=== PATIENT | female | born 1990 | race Caucasian/White ===

== ENCOUNTER 2019-06-05 04:55 | Inpatient (IN) | payer MEDICAID ==
[~2019-06-05] VITALS: Ht 170 cm; Wt 103.4 kg
[2019-06-05] MEDS ORDERED: DIPHENHYDRAMINE 25MG CAPSULE PO PRN (05:45)
[2019-06-05] MEDS ORDERED: IBUPROFEN 400MG TABLET PO PRN (05:45)
[2019-06-05] MEDS ORDERED: ACETAMINOPHEN WITH CODEINE 300/30MG TABLET PO PRN (05:45)
[2019-06-05] MEDS ORDERED: HEMORRHOIDAL SUPP PR PRN (05:45)
[2019-06-05] MEDS ORDERED: RHO(D) IMMUNE GLOBULIN 300 MCG/SYR IM PRN (05:45)
[2019-06-05] MEDS ORDERED: GLYCERIN/WITCH HAZEL LEAF MEDICATED PAD TOP PRN (05:45)
[2019-06-05] MEDS ORDERED: BENZOCAINE/LANOLIN/ALOE VERA SPRAY TOP PRN (05:45)
[2019-06-05] MEDS ORDERED: LANOLIN OINT 7GM TUBE TOP PRN (05:45)
[2019-06-05] MEDS: DEXT 5%/LR + PITOCIN 20UNITS/L 1,000 ML IV SCH ×2 (05:50→07:56)
[2019-06-05 05:51] LABS: BASOPHILS % 0.4 % (0.0-2.0); EOSINOPHILS % 1.3 % (0.0-5.0); HEMATOCRIT. 34.9 % (36.0-48.0); HEMOGLOBIN. 11.9 g/dL (12.0-16.0); LYMPHOCYTES % 26.9 % (20.0-50.0); MEAN CORPUSCULAR HEMOGLOBIN 29.8 pg (28.0-32.0); MEAN CORPUSCULAR VOLUME 87.1 fL (81.0-99.0); MEAN PLATELET VOLUME 7.2 fl (7.4-10.4); MONOCYTES % 4.9 % (2.0-8.0); NEUTROPHILS % 66.5 % (40.0-76.0); PLATELET 222 x1000/uL (130-400); RED CELL DISTRIBUTION WIDTH 13.4 % (11.6-14.6)
[2019-06-05 06:00] LABS: INR 0.9; PARTIAL THROMBOPLASTIN TIME 28.9 sec (23.4-31.0); PROTHROMBIN TIME 9.2 sec (9.6-11.0)
[2019-06-05] MEDS ORDERED: INFLUENZA VIRUS VACCINE(AFLURIA) 0.5ML SYR IM ONE (06:00)
[2019-06-05] MEDS ORDERED: TETANUS, DIPHTHERIA, PERTUSSIS VAC/PF 0.5ML (>7YR OLD) IM ONE (06:00)
[2019-06-05 06:45] LABS: HEPATITIS B SURFACE ANTIGEN NEGATIVE
[2019-06-05 06:55] LABS: CLARITY URINE CLOUDY (CLEAR); COLOR URINE YELLOW (YELLOW); KETONES URINE NEGATIVE (NEGATIVE); LEUKOCYTE ESTERASE URINE 2+ (NEGATIVE); NITRITE URINE NEGATIVE (NEGATIVE); OCCULT BLOOD URINE 3+ (NEGATIVE); PROTEIN URINE TRACE (NEGATIVE); SPECIFIC GRAVITY URINE 1.015 (1.005-1.030); UROBILINOGEN URINE 0.2 E.U./dL (0.2-1.0)
[2019-06-05 07:19] LABS: *AMPHETAMINES SCREEN URINE NEGATIVE (NEGATIVE); *BARBITURATES SCREEN URINE NEGATIVE (NEGATIVE); *BENZODIAZEPINES SCREEN URINE NEGATIVE (NEGATIVE); *COCAINE SCREEN URINE NEGATIVE (NEGATIVE); METHADONE URINE SCREEN NEGATIVE (NEGATIVE); OPIATES URINE SCREEN NEGATIVE (NEGATIVE)
[2019-06-05 07:20] LABS: CANNABINOID URINE SCREEN NEGATIVE (NEGATIVE); PHENCYCLIDINE URINE SCREEN NEGATIVE (NEGATIVE)
[2019-06-05] MEDS: IBUPROFEN 800MG TABLET PO PRN ×2 (07:44→14:57)
[2019-06-05 08:30] VITALS: BP 121/72
[2019-06-05 09:30] VITALS: BP 130/78
[2019-06-05 14:55] VITALS: BP 112/62
[2019-06-05 19:15] VITALS: BP 126/81
[2019-06-05] MEDS: DOCUSATE SODIUM 100MG CAPSULE PO SCH (21:10)
[2019-06-06 05:10] VITALS: BP 130/88
[2019-06-06] MEDS: IBUPROFEN 800MG TABLET PO PRN ×2 (05:20→13:19)
[2019-06-06 08:00] VITALS: BP 109/64
[2019-06-06] MEDS: PRENATAL VIT/FE FUMARATE/FA TABLET PO SCH ×2 (08:45→09:00)
[2019-06-06] MEDS: FERROUS SULFATE 325MG TABLET PO SCH (08:45)
[2019-06-06 10:21] LABS: BASOPHILS % 0.4 % (0.0-2.0); EOSINOPHILS % 0.9 % (0.0-5.0); HEMATOCRIT. 32.1 % (36.0-48.0); HEMOGLOBIN. 10.7 g/dL (12.0-16.0); LYMPHOCYTES % 24.9 % (20.0-50.0); MEAN CORPUSCULAR HEMOGLOBIN 29.6 pg (28.0-32.0); MEAN CORPUSCULAR VOLUME 88.6 fL (81.0-99.0); MEAN PLATELET VOLUME 7.5 fl (7.4-10.4); NEUTROPHILS % 69.8 % (40.0-76.0); PLATELET 206 x1000/uL (130-400); RED BLOOD CELL COUNT 3.62 mill/uL (4.2-5.4); RED CELL DISTRIBUTION WIDTH 13.8 % (11.6-14.6)
[2019-06-06 13:25] VITALS: BP 119/82
[2019-06-06 19:30] VITALS: BP 112/85
[2019-06-06] MEDS: DOCUSATE SODIUM 100MG CAPSULE PO SCH (21:08)
[2019-06-07 04:00] VITALS: BP 119/73
[2019-06-07] MEDS: FERROUS SULFATE 325MG TABLET PO SCH (07:30)
[2019-06-07 08:00] VITALS: BP 115/78
== END 2019-06-07 11:05 | disposition home or self-care (01) | DRG 560 ==
LOC: 8 EST LDRP 04:55 → OBSVTOIN 04:55 → 8EST 08:05
PROVIDERS: ADMIT Specialist; ATTEND Specialist
PROC: 10E0XZZ Delivery of Products of Conception, External Approach (ICD-10-PCS; principal; 2019-06-05)
DX: O80 Encounter for full-term uncomplicated delivery (principal); Z37.0 Single live birth; Z3A.37 37 weeks gestation of pregnancy
CPT/HCPCS: 36415; 80305; 81003; 86592; 86703; 86762; 86850; 86900; 87340; 90686; 90715; 99281; J2590